=== PATIENT | female | born 1995 | race Caucasian/White ===

== ENCOUNTER 2016-12-07 18:21 | Emergency (ER) | payer OTHER ==
[~2016-12-07 18:21] MED LIST: ACID CONTROL20 MG PO; ALBUTEROL MININEB NEB; ALBUTEROL17 GM INH; AMITRYPTYLINE PO; BC PILL; BENTYL10 M1 PO; BENTYL20 M1 PO; BIRTH CONTROL PILL; BUSPAR; FAMOTIDINE20 MG PO; FLAGYL250 MG; GABAPENTIN400 MG; IBUPROFEN800 MG PO; LO LOESTRIN FE1 EACH PO; MACROBID100 M1 PO; PHENERGAN25 M1 DOB; PHENERGAN25 MG PO; PREDNISONE PO; SINGULAIR; SYMBICORT; VISTARIL; VOLTAREN75 MG PO; ZOFRAN ODT4 MG PO; ZOLOFT50 MG PO; ZYRTEC10 M3 PO
== END 2016-12-07 20:46 | disposition home or self-care (01) ==
LOC: SED 18:21
DX: T40.1X1A Poisoning by heroin, accidental (unintentional), initial encounter (principal); T40.3X1A Poisoning by methadone, accidental (unintentional), initial encounter; T42.4X1A Poisoning by benzodiazepines, accidental (unintentional), initial encounter; J45.909 Unspecified asthma, uncomplicated; F32.9 Major depressive disorder, single episode, unspecified; Z88.0 Allergy status to penicillin; Z79.899 Other long term (current) drug therapy; K21.9 Gastro-esophageal reflux disease without esophagitis; F17.200 Nicotine dependence, unspecified, uncomplicated; R03.0 Elevated blood-pressure reading, without diagnosis of hypertension
CPT/HCPCS: 99282